=== PATIENT | female | born 1990 | race Hispanic/Latino ===

== ENCOUNTER 2021-07-24 17:46 | Emergency (ER) | payer SELFPAY ==
[2021-07-24] MEDS ORDERED: ONDANSETRON 4 MG/2 ML INJ IV ONE (18:05)
--- NOTE | 2021-07-24 18:08 | Emergency Department Report ---
ED General Adult HPI - General Chief complaint: Abdominal Pain Stated complaint: BLADDER INFECTION/BACK/ABD PAIN/NAUSEA Time Seen by Provider: 07/24/21 17:59 Source: patient Mode of arrival: Ambulatory Limitations: No Limitations - History of Present Illness Initial comments: 30-year-old female patient with history of migraines, PCOS, hypertension, pyelo nephritis, and recurrent cystitis presents to the emergency department with complaints of painful urination, diffuse lower abdominal pain, lower back pain, and nausea for 2 days. Patient states symptoms are reminiscent of prior diagnoses consistent with pyelonephritis. Last antibiotic use was approximately 4 weeks ago. Patient states she completed a course of Cefdinir for a bladder infection. Denies fever, chills, vomiting, vaginal discharge, vaginal bleeding, diarrhea, constipation. Denies all other complaints at this time. - Related Data Previous Rx's Medication Instructions Recorded Last Taken Type Fluconazole [Diflucan TAB] 150 mg PO QDAY 1 Days tablet 07/24/21 Unknown Rx Metoclopramide [Reglan] 10 mg PO TID #20 tab 07/24/21 Unknown Rx Metoprolol Xl [Metoprolol 50 mg PO QDAY #7 tablet 07/24/21 Unknown Rx SUCCINATE ER TAB] Naproxen 500 mg PO BID #20 tablet 07/24/21 Unknown Rx levoFLOXacin [Levaquin] 750 mg PO QDAY #7 tablet 07/24/21 Unknown Rx Allergies Allergy/AdvReac Type Severity Reaction Status Date / Time hydrochlorothiazide Allergy Unknown Verified 07/24/21 17:54 ED Review of Systems ROS: Stated complaint: BLADDER INFECTION/BACK/ABD PAIN/NAUSEA Other details as noted in HPI Other: GENERAL: Negative for fever, chills, weight change, anorexia, fatigue. ENT: Negative for ear pain, difficulty hearing, sore throat, nasal congestion, epistaxis. CARDIOVASCULAR: Negative for chest pain, palpitations, lower extremity swelling. PULMONARY: Negative for cough, dyspnea, wheezing, orthopnea, cyanosis. GASTROINTESTINAL: Positive for abdominal pain and nausea. GENITOURINARY: Positive for painful urination. MUSCULOSKELETAL: Positive for back pain. NEUROLOGICAL: Negative for headache, seizure, syncope, paresthesias, weakness. INTEGUMENTARY: Negative for erythema, rash, diaphoresis, laceration, ecchymosis. HEMATOLOGICAL: Negative for hemoptysis, hematemesis, hematochezia, hematuria. PSYCHIATRIC: Negative for hallucinations, suicidal ideation, homicidal ideation, anxiety, depression. ED Past Medical Hx - Past Medical History Previous Medical History?: No - Surgical History Past Surgical History?: No - Medications Home Medications: Home Medications Medication Instructions Recorded Confirmed Last Taken Type Fluconazole [Diflucan TAB] 150 mg PO QDAY 1 Days tablet 07/24/21 Unknown Rx Metoclopramide [Reglan] 10 mg PO TID #20 tab 07/24/21 Unknown Rx Metoprolol Xl [Metoprolol 50 mg PO QDAY #7 tablet 07/24/21 Unknown Rx SUCCINATE ER TAB] Naproxen 500 mg PO BID #20 tablet 07/24/21 Unknown Rx levoFLOXacin [Levaquin] 750 mg PO QDAY #7 tablet 07/24/21 Unknown Rx ED Physical Exam - General Limitations: No Limitations - Other Other exam information: General: Awake and alert. No acute distress. Head: Atraumatic, normocephalic. Eyes: EOMI. Pupils are equal and round. Normal sclera and conjunctiva. ENT: Oral mucosa is moist. Normal pharyngeal exam. Neck: Supple. No lymphadenopathy. Pulmonary: No respiratory distress. Clear to auscultation bilaterally. Cardiac: Regular rate and rhythm. Pulses are palpable and equal bilaterally. No lower extremity cyanosis or edema. Skin: Warm and dry. No rashes. Abdomen: Soft, non-protuberant. Diffuse lower abdominal tenderness without guarding, rigidity, or rebound. Bowel sounds are normal. No organomegaly or masses noted. Back: Normal alignment. Bilateral CVA tenderness. Extremities: Symmetrical. Full range of motion intact. Neurological: Alert and oriented, appropriately interactive, no focal deficits. Psych: Cooperative. Appropriate mood and affect. Speech is evenly metered. Thoughts are logically construed. ED Course Vital Signs 07/24/21 07/24/21 17:55 20:33 Temperature 98.6 F Pulse Rate 94 H 88 Respiratory 16 18 Rate Blood Pressure 152/98 Blood Pressure 199/111 [Left] O2 Sat by Pulse 97 100 Oximetry ED Medical Decision Making - Lab Data Result diagrams: 07/24/21 18:31 07/24/21 18:31 - Medical Decision Making Differential diagnosis including but not limited to: pyelonephritis, nephrolithiasis, urinary tract infection, , -related complication On evaluation, patient remains stable. Repeat blood pressure is significantly improved without intervention. Initial blood pressure in the emergency department was elevated. Patient has a history of hypertension and states she has been out of her Metoprolol XR for approximately 1 week. Labs show mild deh ydration. Given IV fluids. History, physical examination, and urinalysis findings suggestive of pyelonephritis. test is negative and renal function is within normal limits. She is afebrile, no tachycardia, no hypotension, tolerating oral intake without difficulty. Patient is an approp riate candidate for outpatient management. Patient will be discharged home with prescription for fluoroquinolone following an IV dose of Rocephin per current UpToDate guidelines as well as appropriate symptomatic treatment. Patient expressed understanding and is agreeable to plan of care. Referred to urologist due to recurrent nature of genitourinary infections. Strict return precautions provided. Repeat exam is unremarkable and benign. History, exam, diagnostic testing, and current condition do not suggest worrisome pathology to warrant further testing, continued ED treatment, admission, or surgical evaluation at this point. Given the low probability of a significant medical illness, it would be more likely to result in harm than benefit to perform further testing at this stage. Discussed findings, presumptive diagnosis, need for follow-up and specific signs/symptoms that should prompt immediate return to the emergency department. Instructions were explained in detail to the patient in addition to giving written discharge information. Patient expressed understanding and was given the opportunity to ask questions, all of which were satisfactorily answered prior to discharge ho me. Critical care attestation.: If time is entered above; I have spent that time in minutes in the direct care of this critically ill patient, excluding procedure time. ED Disposition Clinical Impression: Pyelonephritis, History of hypertension, Recurrent candidiasis of vagina Disposition: 01 HOME / SELF CARE / HOMELESS Is pt being admited?: No Does the pt Need Aspirin: No Condition: Stable Instructions: Pyelonephritis, Adult, [id number], Hypertension, Adult, [id number], Abdominal Pain (ED) Additional Instructions: Take Tylenol every 4 hours as needed for pain. Take Naprosyn twice daily with food as needed for pain. Resume Metoprolol as previously prescribed. Reduce your dietary sodium intake. Continue all other blood pressure medications as previously prescribed. Take Levaquin with food as directed until complete. Increase your dietary intake of probiotic rich foods while taking this medication. Limit physical activity while taking this medication. If you develop symptoms of a yeast infection, please use [id number] antifungal cream until Levaquin is complete. You may start Diflucan if needed once antibiotics are finished. Rest. Drink plenty of fluids. Take Reglan as directed for nausea/vomiting. Follow-up with primary care provider this week. Call tomorrow to schedule an appointment. See referral information below. Follow-up with urologist as soon as possible. Call tomorrow to schedule appointment. See referral information below. Return to the emergency department immediately for new or worsening symptoms. Specifically, return to the emergency department immediately for fever, worsening pain, dehydration, difficulty urinating, mental status changes, or any other concerns. Prescriptions: Fluconazole [Diflucan TAB] 150 mg PO QDAY 1 Days tablet levoFLOXacin [Levaquin] 750 mg PO QDAY #7 tablet Metoprolol Xl [Metoprolol SUCCINATE ER TAB] 50 mg PO QDAY #7 tablet Naproxen 500 mg PO BID #20 tablet Metoclopramide [Reglan] 10 mg PO TID #20 tab Referrals: VALENTE OVERTON MD [Staff Physician] - 3-5 Days [facility] [Provider Group] - 3-5 Days AMANDEEP CASTRO MD [Staff Physician] - 3-5 Days DAGO HILL MD [Staff Physician] - 3-5 Days Forms: Work/School Release Form(ED) Time of Disposition: 20:54
[2021-07-24 18:29] LABS: HCG Qualitative,Urine Negative (Negative)
[2021-07-24 18:35] LABS: Bacteria,Urine 1+ /HPF (Negative); Bilirubin,Urine NEG (Negative); Blood,Urine SM (Negative); Color,Urine Colorless (Yellow); Protein,Urine <15 mg/dL mg/dL (Negative); Urobilinogen,Urine < 2.0 mg/dL (<2.0)
[2021-07-24 18:59] LABS: Basophils % (Auto) 0.6 % (0.0-1.8); Eosinophils # (Auto) 0.1 K/mm3 (0.0-0.4); Eosinophils % (Auto) 1.1 % (0.0-4.3); Hematocrit 36.9 % (30.3-42.9); Hemoglobin 12.3 gm/dl (10.1-14.3); Lymphocytes % (Auto) 35.2 % (13.4-35.0); Mean Corpuscular HGB Conc 33 % (30-34); Mean Corpuscular Volume 81 fl (79-97); Monocytes # (Auto) 0.5 K/mm3 (0.0-0.8); Monocytes % (Auto) 9.2 % (0.0-7.3); Platelet Count 241 K/mm3 (140-440); Red Blood Count 4.54 M/mm3 (3.65-5.03); Red Cell Distribution Width 15.2 % (13.2-15.2)
[2021-07-24 19:23] LABS: Alanine Aminotransferase 24 units/L (7-56); Albumin 4.1 g/dL (3.9-5); Blood Urea Nitrogen 8 mg/dL (7-17); Calcium 9.2 mg/dL (8.4-10.2); Hemolysis Index 8
[2021-07-24 19:52] LABS: BUN/Creatinine Ratio 11
[2021-07-24] MEDS ORDERED: LIDOCAINE-MPF (1%) 10 MG/1 ML VIAL 5 ML INFILTRATI ONE (20:08)
[2021-07-24] MEDS ORDERED: KETOROLAC 30 MG/1 ML INJ IV ONE (20:08)
[2021-07-24] MEDS ORDERED: SODIUM CHLORIDE 0.9% 1000 ML 1,000 ML IV ONE (20:08)
[2021-07-24] MEDS ORDERED: METOPROLOL SUCCINATE XL 50 MG TAB PO ONE (20:13)
[2021-07-24 20:34] VITALS: BP 152/98
[2021-07-24] MEDS ORDERED: cefTRIAXone/NS 1 GM/50 ML 1 GM/50 ML BAG IV ONE (21:00)
== END 2021-07-24 22:25 | disposition home or self-care (01) ==
LOC: ED 17:46
DX: N12 Tubulo-interstitial nephritis, not specified as acute or chronic (principal); B37.3 Candidiasis of vulva and vagina; Z86.79 Personal history of other diseases of the circulatory system; R11.0 Nausea; I10 Essential (primary) hypertension
CPT/HCPCS: 36415; 80053; 81001; 81025; 85025; 87076; 87086; 87186; 96365; 96375; 99283; J0696; J1885; J7030

== ENCOUNTER 2021-09-16 08:12 | Emergency (ER) | payer SELFPAY ==
[2021-09-16 08:39] VITALS: BP 178/113
--- NOTE | 2021-09-16 08:59 | Emergency Department Report ---
ED Female HPI - General Chief complaint: Urogenital-Female Stated complaint: BLADDER INFECTION Time Seen by Provider: 09/16/21 08:44 Source: patient Mode of arrival: Ambulatory Limitations: No Limitations - History of Present Illness Initial comments: 30-year-old female presents to the ER today with complaints of UTI symptoms. Patient has a history of hypertension and recurrent UTIs. Patient states that she has been having urinary frequency, lower abdominal/pelvic discomfort and warmth when she urinates for the past 2 days. She states that it feels similar to when she has had UTIs in the past. The last time she had a UTI was about a month ago when she was prescribed Levaquin. She states that she used to see a urologist, but hasn't seen one in several years. She states that she recently moved here and hasn't established with a PCP nor a urologist as yet. Her last menstrual cycle is August 26, 2021. She is not on control. She reports no vaginal symptoms. She is status post cholecystectomy. MD Complaint: pelvic pain, other (UTI) -: days(s) (2) - Related Data Previous Rx's Medication Instructions Recorded Last Taken Type Fluconazole [Diflucan TAB] 150 mg PO QDAY 1 Days tablet 07/24/21 Unknown Rx Metoclopramide [Reglan] 10 mg PO TID #20 tab 07/24/21 Unknown Rx Metoprolol Xl [Metoprolol 50 mg PO QDAY #7 tablet 07/24/21 Unknown Rx SUCCINATE ER TAB] Naproxen 500 mg PO BID #20 tablet 07/24/21 Unknown Rx levoFLOXacin [Levaquin] 750 mg PO QDAY #7 tablet 07/24/21 Unknown Rx Ibuprofen [Motrin] 600 mg PO Q8H PRN #30 tablet 09/16/21 Unknown Rx Allergies Allergy/AdvReac Type Severity Reaction Status Date / Time hydrochlorothiazide Allergy Unknown Verified 07/24/21 17:54 ED Review of Systems ROS: Stated complaint: BLADDER INFECTION Other details as noted in HPI Comment: All other systems reviewed and negative Constitutional: denies: chills, fever Eyes: denies: eye pain, eye discharge, vision change ENT: denies: ear pain, throat pain, dental pain, hearing loss, epistaxis, congestion Respiratory: denies: cough, shortness of breath, SOB with exertion, SOB at rest, wheezing Cardiovascular: denies: chest pain, palpitations Endocrine: no symptoms reported Gastrointestinal: abdominal pain. denies: nausea, vomiting, diarrhea, constipation, hematemesis, melena, hematochezia Genitourinary: dysuria, frequency. denies: hematuria, discharge, abnormal menses, dyspareunia Musculoskeletal: denies: back pain, joint swelling, arthralgia Skin: denies: rash, lesions, change in color, change in hair/nails, pruritus Neurological: denies: headache, weakness, numbness, paresthesias, confusion, abnormal gait, vertigo Psychiatric: denies: anxiety, depression, auditory hallucinations, homicidal thoughts, suicidal thoughts ED Past Medical Hx - Past Medical History Previous Medical History?: No - Surgical History Past Surgical History?: No - Medications Home Medications: Home Medications Medication Instructions Recorded Confirmed Last Taken Type Fluconazole [Diflucan TAB] 150 mg PO QDAY 1 Days tablet 07/24/21 Unknown Rx Metoclopramide [Reglan] 10 mg PO TID #20 tab 07/24/21 Unknown Rx Metoprolol Xl [Metoprolol 50 mg PO QDAY #7 tablet 07/24/21 Unknown Rx SUCCINATE ER TAB] Naproxen 500 mg PO BID #20 tablet 07/24/21 Unknown Rx levoFLOXacin [Levaquin] 750 mg PO QDAY #7 tablet 07/24/21 Unknown Rx Ibuprofen [Motrin] 600 mg PO Q8H PRN #30 tablet 09/16/21 Unknown Rx ED Physical Exam - General Limitations: No Limitations General appearance: alert, in no apparent distress, obese - Head Head exam: Present: atraumatic, normocephalic, normal inspection - Eye Eye exam: Present: normal appearance, PERRL, EOMI Pupils: Present: normal accommodation - Respiratory Respiratory exam: Present: normal lung sounds bilaterally. Absent: respiratory distress, wheezes, rales - Cardiovascular Cardiovascular Exam: Present: regular rate, normal rhythm - GI/Abdominal GI/Abdominal exam: Present: soft, tenderness (Labs prepubic tenderness without guarding or rebound). Absent: distended - Back Exam Back exam: Present: normal inspection, full ROM. Absent: CVA tenderness (R), CVA tenderness (L) - Neurological Exam Neurological exam: Present: alert, oriented X3, CN II-XII intact, normal gait - Psychiatric Psychiatric exam: Present: normal affect, normal mood - Skin Skin exam: Present: intact ED Course Vital Signs 09/16/21 09/16/21 08:38 12:33 Temperature 98.3 F Pulse Rate 78 94 H Respiratory 18 Rate Blood Pressure 178/113 [Right] O2 Sat by Pulse 98 99 Oximetry ED Medical Decision Making - Medical Decision Making Patient presented to the ER with concern for possible UTI as she has a history of recurrent UTIs. Patient urinalysis today does not suggest a UTI. hCG is negative. Patient is well-appearing, nontoxic and not in any significant distress. She has a nonsurgical abdominal exam. She reports no vaginal symptoms. Her vital signs are stable. Discussed urinalysis results with patient. At this time there is no signs that she has a UTI and hCG is negative. Based on patient physical exam, she has been on surgical abdominal exam, she is well-appearing and not in any significant pain distress. She is hemodynamically stable. I do not see an indication for any additional testing/imaging at this time. She will be given referral information to PCP. I did discuss worsening signs and symptoms with her and she is to return to the ER immediately if any of the signs and symptoms develop. Patient expressed understanding agree with plan. Patient stable at time of discharge. Critical care attestation.: If time is entered above; I have spent that time in minutes in the direct care of this critically ill patient, excluding procedure time. ED Disposition Clinical Impression: Dysuria, Lower abdominal pain Disposition: 01 HOME / SELF CARE / HOMELESS Is pt being admited?: No Does the pt Need Aspirin: No Condition: Stable Instructions: Abdominal Pain, Adult, [id number], Dysuria Additional Instructions: Recommend taking ibuprofen as prescribed to help with any pain. Continue drinking lots of water. Follow-up with primary care doctor and the urologist listed in the discharge instructions. Return to the ER if your symptoms changes or worsens in any way. Prescriptions: Ibuprofen [Motrin] 600 mg PO Q8H PRN #30 tablet PRN Reason: Pain Referrals: MICHELE FRANCOIS MD [Staff Physician] - 3-5 Days AMANDEEP CASTRO MD [Staff Physician] - 3-5 Days Forms: Work/School Release Form(ED) Time of Disposition: 12:24
[2021-09-16 12:17] LABS: Bilirubin,Urine NEG (Negative); Blood,Urine NEG (Negative); Color,Urine Yellow (Yellow); Mucus,Urine FEW /HPF; Protein,Urine <15 mg/dL mg/dL (Negative); RBC,Urine < 1.0 /HPF (0.0-6.0); Urobilinogen,Urine < 2.0 mg/dL (<2.0); WBC,Urine < 1.0 /HPF (0.0-6.0)
[2021-09-16 12:21] LABS: HCG Qualitative,Urine Negative (Negative)
== END 2021-09-16 12:33 | disposition home or self-care (01) ==
LOC: ED 08:12
DX: R30.0 Dysuria (principal); R10.33 Periumbilical pain; Z79.899 Other long term (current) drug therapy
CPT/HCPCS: 81001; 81025; 99283